=== PATIENT | female | born 1985 | race Hispanic/Latino ===

== ENCOUNTER 2016-08-17 08:34 | Observation (INO) | payer OTHER ==
[2016-08-17 08:43] VITALS: BMI 20.6
[2016-08-17] MEDS ORDERED: Sodium Chloride 0.9% 1,000 ML IV STA (09:27)
--- NOTE | 2016-08-17 09:36 | ED PDOC ---
HPI: General Adult Time Seen by Provider: 08/17/16 09:10 Chief Complaint (Nursing): Abdominal Pain Chief Complaint (Provider): abdominal pain History Per: Patient History/Exam Limitations: no limitations Additional Complaint(s): 31yo female 11 weeks complaining of vomit 7x yesterday and abdominal pain. She has been taking Diclegis as prescribed by her OB, used last night and this morning. No vomit today. No fever, diarrhea, vaginal bleeding or discharge, urinary symptoms. Past Medical History Reviewed: Historical Data, Nursing Documentation, Vital Signs Vital Signs: Last Vital Signs Temp 98.2 F 08/17/16 15:28 Pulse 71 08/17/16 15:28 Resp 16 08/17/16 15:28 BP 89/49 L 08/17/16 15:28 Pulse Ox 100 08/17/16 15:28 - Medical History PMH: Anxiety - Surgical History Surgical History: Cholecystectomy - Family History Family History: States: Unknown Family Hx - Home Medications Home Medications: Ambulatory Orders Medication Instructions Recorded Doxylamine/Pyridoxine HCl (B6) 1 tab PO QID PRN 08/17/16 [Diclegis Dr 10-10 mg Tablet] - Allergies Allergies/Adverse Reactions: Allergies Allergy/AdvReac Type Severity Reaction Status Date / Time No Known Allergies Allergy Verified 06/23/15 21:40 Review of Systems ROS Statement: Except As Marked, All Systems Reviewed And Found Negative Constitutional: Negative for: Fever Cardiovascular: Negative for: Chest Pain Respiratory: Negative for: Cough Gastrointestinal: Positive for: Vomiting, Abdominal Pain. Negative for: Diarrhea Genitourinary Female: Negative for: Dysuria, Frequency, Vaginal Discharge, Vaginal Bleeding Skin: Negative for: Rash, Lesions Neurological: Negative for: Headache, Dizziness Physical Exam - Reviewed Nursing Documentation Reviewed: Yes Vital Signs Reviewed: Yes - Physical Exam Appears: Positive for: Well, Non-toxic, No Acute Distress Head Exam: Positive for: ATRAUMATIC, NORMAL INSPECTION, NORMOCEPHALIC Skin: Positive for: Normal Color, Warm, Dry Cardiovascular/Chest: Positive for: Regular Rate, Rhythm Respiratory: Positive for: Normal Breath Sounds Gastrointestinal/Abdominal: Positive for: Soft, Tenderness (epigastic, bilateral lower quadrant). Negative for: Distended, Guarding, Rebound Back: Positive for: Normal Inspection Extremity: Positive for: Normal ROM Neurologic/Psych: Positive for: Alert, Oriented - Laboratory Results Result Diagrams: 08/17/16 09:25 08/17/16 09:25 - ECG O2 Sat by Pulse Oximetry: 99 Medical Decision Making Medical Decision Makin US OB, labs, pepcid, IV fluids ordered. 1155 patient reassessed, minimal pain. Abdominal ultrasound ordered. 1400 Pt ate food tray, tolerated PO, feels better. Abdominal exam nontender, no guarding, no rebound. Discussed with patient reasons to return to ED and possibility of appendicitis, ie. fever, increased vomiting, worsening pain in lower abdomen/RLQ. Disposition - Clinical Impression Clinical Impression: Abdominal pain during , Gastritis - Disposition Disposition: Routine/Home Disposition Time: 15:19 Condition: IMPROVED Additional Comments - Additional Comments Additional Comments: Scribe Attestation: Documented by Suleiman Calle acting as a scribe for Eneida Anderson MD. Provider Scribe Attestation: All medical record entries made by the Scribe were at my direction and personally dictated by me. I have reviewed the chart and agree that the record accurately reflects my personal performance of the history, physical exam, medical decision making, and the department course for this patient. I have also personally directed, reviewed, and agree with the discharge instructions and disposition.
[2016-08-17 09:53] LABS: BASO # 0.1 K/uL (0.0-0.2); BASO % 0.4 % (0.0-2.0); EOS % 0.2 % (0.0-4.0); HEMATOCRIT 35.7 % (34.0-47.0); LYMPH # 0.8 K/uL (1.0-4.3); LYMPH % 5.3 % (20.0-40.0); MEAN CELL VOLUME 90.3 fl (81.0-99.0); MEAN CORPUSCULAR HEMOGLOBIN 30.8 pg (27.0-31.0); MEAN CORPUSCULAR HGB CONC 34.1 g/dL (33.0-37.0); MEAN PLATELET VOLUME 10.5 fl (7.2-11.7); MONO # 0.5 K/uL (0.0-0.8); MONO % 3.5 % (0.0-10.0); NEUT # 14.2 K/uL (1.8-7.0); NEUT % 90.6 % (50.0-75.0); PLATELET COUNT 183 K/uL (130-400); RED CELL DISTRIBUTION WIDTH 12.3 % (11.5-14.5); WHITE BLOOD COUNT 15.7 K/uL (4.8-10.8)
[2016-08-17 09:59] LABS: ALB/GLOB RATIO 1.5 (1.0-2.1); ALKALINE PHOSPHATASE 42 U/L (38-126); ALT/SGPT 21 U/L (9-52); AST/SGOT 21 U/L (14-36); BILIRUBIN,TOTAL 0.7 mg/dl (0.2-1.3); BLOOD UREA NITROGEN 9 mg/dl (7-17); CALCIUM 9.1 mg/dL (8.4-10.2); CARBON DIOXIDE 23 mmol/L (22-30); CHLORIDE 102 mmol/L (98-107); GFR AFRICAN-AMERICAN > 60; GLUCOSE,RANDOM 80 mg/dL (65-105); LIPASE 28 U/L (23-300); POTASSIUM 3.7 MMOL/L (3.6-5.0); SODIUM 134 mmol/l (132-148); TOTAL PROTEIN 6.7 G/DL (6.3-8.2)
[2016-08-17 10:03] LABS: RBC URINE 4 /hpf (0-3); URINE BACTERIA RARE (<OCC); URINE BILIRUBIN NEGATIVE (NEGATIVE); URINE BLOOD NEGATIVE (NEGATIVE); URINE COLOR YELLOW (YELLOW); URINE GLUCOSE (UA) NEG (Normal); URINE KETONE 80 mg/dL (NEGATIVE); URINE LEUKOCYTE ESTERASE NEG Leu/uL (Negative); URINE PROTEIN 100 mg/dL (NEGATIVE); URINE UROBILINOGEN 0.2-1.0 mg/dL (0.2-1.0); WBC URINE 3 /hpf (0-5)
[2016-08-17 11:10] LABS: BASOPHIL 1 % (0-2); NEUTROPHIL 86 % (42-75); TOTAL CELLS COUNTED 100
--- NOTE | 2016-08-17 12:31 | US ---
PROCEDURE: First trimester ultrasound HISTORY: 11 weeks presenting with abdominal pain and vomiting COMPARISON: None available. TECHNIQUE: Standard protocol for this study/examination. FINDINGS: LMP: . Prior examinations from the current : None. TECHNIQUE: Real-time 2D imaging, duplex and color Doppler. FINDINGS: Cardiac activity: Present Rate: One hundred seventy-one BPM Measurements: Funk rump length: 4.17 cm Gestational age based on CRL 11 weeks Gestational age based on gestational sac measurement 11 weeks 2 days Gestational age derived from LMP: 13 weeks 5 days TROY based on LMP: 02/17/2017 TROY based on biometry: 03/07/2017 Gestational concordance documented Yolk sac identified Uterus: Unremarkable. No Cervical abnormalities: Negative examination for cervical dilatation or effacement. Closed cervix 3.4 cm in length. Subchorionic hemorrhage: None ADNEXA: Right: 1.3 x 2.9 cm. Normal Doppler arterial waveform documented. Left: 3.2 x 3.6 cm. Normal Doppler arterial waveform documented Fluid in the cul-de-sac: None IMPRESSION: Eleven weeks 1 day live intrauterine gestation.
--- NOTE | 2016-08-17 15:07 | US ---
HISTORY: Abd pain, vomiting, COMPARISON: CT abdomen and pelvis without contrast performed 06/23/15 TECHNIQUE: Sonographic evaluation of the abdomen. FINDINGS: LIVER: Measures 15.6 cm in sagittal dimension and appears within normal limits of size, shape, and echotexture. No focal hepatic mass identified. The main portal vein appears patent with normal directional flow. No intrahepatic bile duct dilatation. GALLBLADDER: Cholecystectomy. COMMON BILE DUCT: Measures 9 mm. PANCREAS: Not well visualized. RIGHT KIDNEY: Measures 10.5 x 3.6 x 4.9cm. No obstructing calculus or hydronephrosis identified. LEFT KIDNEY: Measures 11.0 x 4.3 x 5.1cm. No obstructing calculus or hydronephrosis identified. SPLEEN: Measures approximately 10.4 cm. AORTA: Limited views appear unremarkable. IVC: Limited views appear unremarkable. OTHER FINDINGS: The appendix is not identified on the limited submitted views of the right lower quadrant. IMPRESSION: Dilated common bile duct in the setting of cholecystectomy. The appendix is not identified on the limited submitted views of the right lower quadrant.
[2016-08-17 15:27] VITALS: RESP 16
[2016-08-17 15:29] VITALS: BP 89/49; PULSE 71; TEMP 98.2
[2016-08-18 15:17] VITALS: O2SAT 99
== END 2016-08-17 15:36 | disposition home or self-care (01) ==
LOC: H.ER 08:34 → H.EROBSV 13:36
PROVIDERS: ADMIT Emergency Medicine; ATTEND Emergency Medicine
DX: O99.611 Diseases of the digestive system complicating pregnancy, first trimester (principal); K92.89 Other specified diseases of the digestive system; Z3A.11 11 weeks gestation of pregnancy; O99.340 Other mental disorders complicating pregnancy, unspecified trimester; F41.9 Anxiety disorder, unspecified